=== PATIENT | female | born 1960 | race Caucasian/White ===

== ENCOUNTER 2023-11-08 16:10 | Emergency (ER) | payer OTHER ==
[2023-11-08 16:16] VITALS: BP 132/89; PULSE 76; RESP 18; TEMP 98.8; BMI 24.0
[2023-11-08 17:53] LABS: BASO % 0.5 % (0-2.0); EOS % 1.5 % (0-4.5); HEMATOCRIT 36.4 % (32.4-45.2); HEMOGLOBIN 12.2 GM/dL (10.7-15.3); LYMPH % 29.6 % (8-40); MCH 27.7 pg (25.7-33.7); MCHC 33.6 g/dl (32.0-36.0); MEAN CELL VOLUME 82.6 fl (80-96); MEAN PLT VOLUME 8.1 fl (7.5-11.1); MONO % 6.3 % (3.8-10.2); NEUT % 62.1 % (42.8-82.8); PLATELET COUNT 156 10^3/uL (134-434); RBC 4.41 M/mm3 (3.60-5.2); RDW 13.4 % (11.6-15.6); WHITE BLOOD COUNT 5.7 K/mm3 (4.0-10.0)
[2023-11-08 18:12] LABS: POTASSIUM 3.9 mmol/L (3.5-5.1)
[2023-11-08 18:13] LABS: EPI CELLS 29 /uL (0-25.1); HYALINE CASTS 1 /uL (0-3.1); PH,URINE 5.5 (5.0-8.0); URINE APPEARANCE Clear; URINE BACTERIA 1516 /uL (0-1359); URINE BILIRUBIN Negative (NEGATIVE); URINE COLOR Yellow; URINE GLUCOSE (UA) Negative (NEGATIVE); URINE KETONE Negative (NEGATIVE); URINE LEUK ESTERASE Moderate (NEGATIVE); URINE NITRITE Negative (NEGATIVE); URINE PROTEIN Negative (NEGATIVE); URINE RBC 4 /uL (0-23.9); URINE UROBILINOGEN 0.2 mg/dL (0.2-1.0); URINE WBC 147 /uL (0-25.8)
[2023-11-08 18:14] LABS: CALCIUM 8.8 mg/dL (8.5-10.1)
[2023-11-08 18:15] LABS: BLOOD UREA NITROGEN 23.8 mg/dL (7-18)
[2023-11-08 18:18] LABS: CREATININE 0.8 mg/dL (0.55-1.3)
[2023-11-08 18:19] LABS: BILIRUBIN,TOTAL 0.5 mg/dL (0.2-1); TOT PROT 7.3 g/dl (6.4-8.2)
== END 2023-11-08 19:58 | disposition home or self-care (01) ==
LOC: JER 16:10
DX: K57.90 Diverticulosis of intestine, part unspecified, without perforation or abscess without bleeding (principal); R10.11 Right upper quadrant pain; R14.0 Abdominal distension (gaseous); R30.0 Dysuria
CPT/HCPCS: 36415; 71046-TC-FY; 74176-TC; 76705-TC; 80053; 81003; 83690; 85025; 99285-25